=== PATIENT | female | born 1930 | race Caucasian/White ===

== ENCOUNTER 2017-06-26 09:10 | Inpatient (IN) | payer OTHER ==
--- NOTE | 2017-06-26 09:12 | EDPHY ---
H & P HPI/ROS: CHIEF COMPLAINT: Weakness HISTORY OF PRESENT ILLNESS: This patient is an 87 year old female arriving with her family complaining of vertigo and weakness onset this morning upon waking. When she went to get out of bed this morning, she felt her "legs wouldn't work", and had associated spinning dizziness and vision changes, including intermittent diplopia. She found she could not get up due to severe weakness. She is usually able to ambulate with a cane or walker, and lives independently. She called her daughter , who in turn summoned EMS. She denies headache. She is photophobic. She denies any urinary complaints, diarrhea, vomiting, or other associated symptoms. She has had episodes of weakness in the past related to inadequate oral intake, but this episode seems worse. REVIEW OF SYSTEMS: A ten point review of systems was performed and is negative with the exception of the items mentioned in the HPI. Past medical history: 1. Colitis 2. Hypertension 3. Hyperlipidemia 4. Hypothyroid 5. Pulmonary Embolism / DVT Past surgical history: 1. Appendectomy 2. Tonsillectomy 3. Partial hysterectomy 4. Splenectomy 5. Hip replacement 6. Thyroidectomy Reviewed past medical records including ED visit 07/06/16 for syncope and weakness. Family history: Noncontributory Social history: Lives independently in a townhouse in [place]. Son and daughter-in -law at bedside. . General Appearance: Alert. Vital signs reviewed. Blood pressure 180/102 at triage. Eyes: Pupils equal and round, no conjunctival injection, no discharge. Anicteric. ENT, Mouth: Mucous membranes are moist, no oropharyngeal erythema or edema. Neck: No lymphadenopathy, supple. Respiratory: Lungs are clear to auscultation; no wheezes, rales, or rhonchi. Cardiovascular: Regular rate and rhythm; no murmur, rub, or gallop. Gastrointestinal: Abdomen is soft and nontender, no masses or organomegaly, bowel sounds normal. Skin: Warm and dry, no rashes on exposed skin, normal color. Back: Nontender to palpation over the thoracolumbar spine. No CVAT. Extremities: No lower extremity edema, no calf tenderness or swelling. Neurological: Alert and oriented. Moving all four extremities easily and equally. Cranial nerves II through XII are examined and are intact with the exception of possible double vision, no field cut appreciated on bedside testing (visual acuity not tested). Sensation is intact to light touch over all 4 extremities. Strength is 4/5 with individual motor testing in the upper and lower extremities. Left leg dysmetria on [id number]. When she attempts to stand at the bedside and walk she requires an assist on each side. Psychiatric: Normal affect. - Medical/Surgical History Hx Asthma: No Hx Chronic Respiratory Disease: No Hx Diabetes: No Hx Cardiac Disease: Yes Hx Renal Disease: No Hx Cirrhosis: No Hx Alcoholism: No Hx HIV/AIDS: No Hx Splenectomy or Spleen Trauma: Yes - Social History Smoking Status: Never smoked Constitutional: Initial Vital Signs Temperature (C) 36.7 C 06/26/17 09:15 Heart Rate 67 06/26/17 09:15 Respiratory Rate 16 06/26/17 09:15 Blood Pressure 180/102 H 06/26/17 09:15 O2 Sat (%) 88 L 06/26/17 09:15 O2 Delivery Mode Nasal Cannula O2 (L/minute) 2 Allergies/Adverse Reactions: No Known Allergies Allergy (Verified 06/26/17 09:45) Home Medications: Medication Instructions Recorded Levothyroxine [Synthroid 75 mcg 75 mcg PO DAILY06 07/06/16 (*)] Losartan Potassium [Cozaar 50 mg 50 mg PO DAILY 07/06/16 (*)] Mesalamine [Apriso 0.375 gm] 1.5 gm PO DAILY@12 07/06/16 Aspirin [Aspirin 81mg (*)] 81 mg PO HS 06/26/17 Medical Decision Making - Diagnostics EKG Interpretation: The 12 lead EKG was interpreted by myself. See hard copy and/or "tracemaster" electronic copy for interpretation. ED Course/Re-evaluation: Plan for CT head, labs including CBC, BMP, Troponin, PTPTT. 10:[address] Dias, radiologist. CT shows evidence of old cortical and cerebellar infarcts. No definite acute processes. She is unable to stand and walk. She requires and assist on each side to stand at the bedside. Both she and her family state that this is new. She usually uses a cane or a walker and does fine. Today she is unable to walk with an assistive device. It is my impression that she has some left leg weakness. 12:34 Spoke with hospitalist service. Dr. Saavedra accepts admission for leg weakness, double vision, possible CVA. MRI pending. She was noted to be hypertensive on arrival. Her blood pressure has decreased during her stay here. 2:00 p.m.: MRI results reported to me by Dr. Dias. She has an acute right thalamic lacunar infarct. She presented with these symptoms and they were present on awakening. She is not a tPA candidate as the onset of symptoms is unknown. Differential Diagnosis: I considered a differential diagnosis that includes but is not limited to embolic or hemorrhagic stroke, intracranial mass, normal pressure hydrocephalus , vertigo, and infection. - Data Points Laboratory Results: Laboratory Results 06/26/17 09:01 06/26/17 09:41 Medications Given: Clopidogrel Bisulfate (Plavix) 75 mg PO DAILY ZEKE Stop: 12/23/17 15:29 Last Admin: 06/28/17 09:27 Dose: 75 mg Ezetimibe (Zetia) 10 mg PO DAILY ZEKE Stop: 12/24/17 10:59 Last Admin: 06/28/17 09:27 Dose: 10 mg Levothyroxine Sodium (Synthroid) 75 mcg PO DAILY06 ZEKE Stop: 12/23/17 15:54 Last Admin: 06/28/17 05:20 Dose: 75 mcg Losartan Potassium (Cozaar) 25 mg PO DAILY ZEKE Stop: 12/25/17 08:59 Last Admin: 06/28/17 09:27 Dose: 25 mg Miscellaneous Medication (Mesalamine [Apriso 0.375 Gm]) 1.5 gm PO DAILY@12 ZEKE Stop: 12/23/17 16:14 Last Admin: 06/27/17 12:16 Dose: 4 cap Discontinued Medications Sodium Chloride (Ns) 500 mls @ 0 mls/hr IV ONCE ONE PRN Reason: Wide Open Stop: 06/26/17 21:00 Last Admin: 06/26/17 21:06 Dose: 500 mls Losartan Potassium (Cozaar) 50 mg PO DAILY ZEKE Stop: 12/24/17 08:59 Last Admin: 06/27/17 08:50 Dose: 50 mg Departure - Departure Disposition: [facility] Inpatient Acute Clinical Impression: Leg weakness, bilateral, Double vision CVA (cerebral vascular accident) Qualifiers: CVA mechanism: embolism Laterality of affected vessel: right Condition: Fair Report Scribed for: Snow Carroll Report Scribed by: Stacey Abrams Date of Report: 06/26/17 Time of Report: 09:37 Physician Review and Approval Statement: 06/26/17 15:03 Portions of this note were transcribed by the medical assembly. I, Dr. Snow Carroll, personally performed the history, physical exam, and medical decision- making; and confirmed the accuracy of the information in the transcribed note.
--- NOTE | 2017-06-26 09:27 | CPEKG ---
Heart Rate: 65 RR Interval: 923 P-R Interval: 176 QRSD Interval: 90 QT Interval: 440 QTC Interval: 458 P Orient: 72 QRS Orient: 93 T Wave Orient: -1 EKG Severity - ABNORMAL ECG - EKG Impression: SINUS RHYTHM EKG Impression: RIGHT AXIS DEVIATION EKG Impression: LOW VOLTAGE IN FRONTAL LEADS EKG Impression: BORDERLINE T ABNORMALITIES, INFERIOR LEADS Electronically Signed By: Snow Carroll 26-Jun-2017 16:54:28
[2017-06-26 09:50] LABS: % IMMATURE GRANULYOCYTES 0.3 % (0.0-1.1); ABSOLUTE IMMATURE GRANULOCYTES 0.02 10^3/uL (0.00-0.10); ADD DIFF? NO; ADD MORPH? NO; ADD SCAN? NO; ATYPICAL LYMPHOCYTE FLAG 0 (0-99); FRAGMENT RBC FLAG 0 (0-99); HEMATOCRIT 40.9 % (38.0-47.0); HEMOGLOBIN 13.7 g/dL (12.6-16.3); LEFT SHIFT FLG 0 (0-99); LIPEMIA HEMOLYSIS FLAG 80 (0-99); MEAN CELL HEMOGLOBIN 33.6 pg (27.9-34.1); MEAN CELL HEMOGLOBIN CONCENTR. 33.5 g/dL (32.4-36.7); MEAN CELL VOLUME 100.2 fL (81.5-99.8); MEAN PLATELET VOLUME 10.6 fL (8.7-11.7); PLATELET CLUMPS FLAG 10 (0-99); PLATELET COUNT 304 10^3/uL (150-400); RED BLOOD CELL COUNT 4.08 10^6/uL (4.18-5.33); RED CELL DISTRIBUTION WIDTH 14.6 % (11.5-15.2)
[2017-06-26 09:52] LABS: MUCUS TRACE /lpf (NONE-1+)
[2017-06-26 09:55] LABS: ANION GAP 12 mEq/L (8-16); CALCIUM 9.7 mg/dL (8.5-10.4); CARBON DIOXIDE 22 mEq/l (22-31); CHLORIDE 103 mEq/L (97-110); CREATININE 0.6 mg/dL (0.6-1.0); GLOMERULAR FILTRATION RATE > 60; GLUCOSE 95 mg/dL (70-100); POTASSIUM 4.4 mEq/L (3.5-5.2); SODIUM 137 mEq/L (134-144)
[2017-06-26 10:07] LABS: TROPONIN I < 0.012 ng/mL (0-0.034)
[2017-06-26 11:15] LABS: INR 1.1 (0.83-1.16); PROTIME(PATIENT) 14.1 SEC (12.0-15.0)
[2017-06-26 11:16] LABS: APTT 21.7 SEC (23.0-38.0)
[2017-06-26] MEDS ORDERED: GADOBUTROL 10 ML VIAL IVP ONE (13:16)
[2017-06-26] MEDS ORDERED: ACETAMINOPHEN 325 MG TAB PO PRN (15:22)
[2017-06-26] MEDS ORDERED: ONDANSETRON 4 MG/2 ML VIAL IVP PRN (15:22)
[2017-06-26] MEDS ORDERED: ONDANSETRON DISINTEGRATING 4 MG TAB PO PRN (15:22)
[2017-06-26] MEDS ORDERED: IOPAMIDOL (ISOVUE 370) 100 ML BTL IV ONE (16:23)
--- NOTE | 2017-06-26 16:49 | PDGENHP ---
History and Physical - Chief Complaint Acute weakness - History of Present Illness Primary care provider: [facility] Primary pre assembly wirer: Dr. Robertson History of present illness: 87-year-old female presenting with acute weakness characterized as inability to stand up from bed, located in the bilateral lower extremities, associated with diplopia and photophobia. Onset of symptoms was about 6:30 a.m. on the day of this presentation, and duration has been persistent thereafter. The patient reports that she was unable to get out of bed and she contacted her daughter for assistance. The patient reports that she had otherwise been feeling well on the evening prior to this presentation, and she was able to ambulate safely and put herself to bed. She reports that she had otherwise been completing all of her activities of daily living in taking her home medications as prescribed. Although the weakness subjectively persisted in the emergency department, the patient's physical exam objectively improved. She did report that the diplopia causing a sensation of dizziness, and seemed to be exacerbated by attempting to focus on distant objects. She reports that she has had vertigo in the past, and this did not seem similar to that condition. History Information - Allergies/Home Medication List Allergies/Adverse Reactions: No Known Allergies Allergy (Verified 06/26/17 09:45) Home Medications: Levothyroxine [Synthroid 75 mcg (*)] 75 mcg PO DAILY06 07/06/16 [Last Taken 07/04] Losartan Potassium [Cozaar 50 mg (*)] 50 mg PO DAILY 07/06/16 [Last Taken ] Mesalamine [Apriso 0.375 gm] 1.5 gm PO DAILY@12 07/06/16 [Last Taken 06/25/17] Aspirin [Aspirin 81mg (*)] 81 mg PO HS 06/26/17 [Last Taken 06/25/17] I have personally reviewed and updated: family history, medical history, social history, surgical history - Past Medical History atrial fibrillation (Paroxysmal), hypertension Additional medical history: Ulcerative colitis. Hemorrhoids. Aortic insufficiency. Pulmonary hypertension. Hypothyroidism. History of pulmonary embolism. Previous CVA - Surgical History Additional surgical history: Thyroid cancer with thyroidectomy. Right total hip replacement. Splenectomy. Hysterectomy. Appendectomy. Tonsillectomy. Adenoidectomy - Family History Additional family history: Sibling and parents CVAs - Social History Smoking Status: Never smoked Alcohol Use: None Drug Use: None Additional social history: Lives independently in 2 story condo in [place], daughter lives locally Review of Systems ROS: 10pt was reviewed & negative except for what was stated in HPI & below Constitutional: Reports: weakness EENMT: Reports: blurred vision (Diplopia) Physical Exam Temp Pulse Resp BP Pulse Ox 36.4 C 62 16 152/83 H 94 06/26/17 15:16 06/26/17 15:16 06/26/17 15:16 06/26/17 15:16 06/26/17 15:16 O2 (L/minute) 2 Constitutional: no apparent distress, not in pain, chronically ill appearing, No uncomfortable Eyes: PERRL, anicteric sclera, EOMI Ears, Nose, Mouth, Throat: moist mucous membranes, hearing normal, ears appear normal, no oral mucosal ulcers Cardiovascular: systolic murmur (Late 2/6 systolic murmur at the left sternal border), No irregularly irregular, No tachycardia, No edema Respiratory: no respiratory distress, no rales or rhonchi, clear to auscultation Gastrointestinal: normoactive bowel sounds, soft, non-tender abdomen, no palpable masses Musculoskeletal: full muscle strength, other (Mild crepitus right knee on flexion, osteoarthritic changes bilateral feet) Neurologic: AAOx3, sensation intact bilaterally, No weakness (Motor strength 5/ 5 bilateral upper and lower extremities) Psychiatric: interacting appropriately, not anxious, not encephalopathic, thought process linear Lab Data & Imaging Review 06/26/17 09:01 06/26/17 09:41 WBC 6.60 10^3/uL (3.80-9.50) 06/26/17 09:01 RBC 4.08 10^6/uL (4.18-5.33) L 06/26/17 09:01 Hgb 13.7 g/dL (12.6-16.3) 06/26/17 09:01 Hct 40.9 % (38.0-47.0) 06/26/17 09:01 MCV 100.2 fL (81.5-99.8) H 06/26/17 09:01 MCH 33.6 pg (27.9-34.1) 06/26/17 09:01 MCHC 33.5 g/dL (32.4-36.7) 06/26/17 09:01 RDW 14.6 % (11.5-15.2) 06/26/17 09:01 Plt Count 304 10^3/uL (150-400) 06/26/17 09:01 MPV 10.6 fL (8.7-11.7) 06/26/17 09:01 Neut % (Auto) 49.8 % (39.3-74.2) 06/26/17 09:01 Lymph % (Auto) 35.5 % (15.0-45.0) 06/26/17 09:01 [place] % (Auto) 11.8 % (4.5-13.0) 06/26/17 09:01 Eos % (Auto) 2.0 % (0.6-7.6) 06/26/17 09:01 Baso % (Auto) 0.6 % (0.3-1.7) 06/26/17 09:01 Nucleat RBC Rel Count 0.0 % (0.0-0.2) 06/26/17 09:01 Absolute Neuts (auto) 3.29 10^3/uL (1.70-6.50) 06/26/17 09:01 Absolute Lymphs (auto) 2.34 10^3/uL (1.00-3.00) 06/26/17 09:01 Absolute Monos (auto) 0.78 10^3/uL (0.30-0.80) 06/26/17 09:01 Absolute Eos (auto) 0.13 10^3/uL (0.03-0.40) 06/26/17 09:01 Absolute Basos (auto) 0.04 10^3/uL (0.02-0.10) 06/26/17 09:01 Absolute Nucleated RBC 0.00 10^3/uL (0-0.01) 06/26/17 09:01 Immature Gran % 0.3 % (0.0-1.1) 06/26/17 09:01 Immature Gran # 0.02 10^3/uL (0.00-0.10) 06/26/17 09:01 PT 14.1 SEC (12.0-15.0) 06/26/17 10:48 INR 1.10 (0.83-1.16) 06/26/17 10:48 APTT 21.7 SEC (23.0-38.0) L 06/26/17 10:48 Sodium 137 mEq/L (134-144) 06/26/17 09:41 Potassium 4.4 mEq/L (3.5-5.2) 06/26/17 09:41 Chloride 103 mEq/L (97-110) 06/26/17 09:41 Carbon Dioxide 22 mEq/l (22-31) 06/26/17 09:41 Anion Gap 12 mEq/L (8-16) 06/26/17 09:41 BUN 22 mg/dL (7-23) 06/26/17 09:41 Creatinine 0.6 mg/dL (0.6-1.0) 06/26/17 09:41 Estimated GFR > 60 06/26/17 09:41 Glucose 95 mg/dL (70-100) 06/26/17 09:41 Calcium 9.7 mg/dL (8.5-10.4) 06/26/17 09:41 Troponin I < 0.012 ng/mL (0-0.034) 06/26/17 09:41 Urine RBC 3-5 /hpf (0-3) H 06/26/17 09:01 Urine WBC 1-3 /hpf (0-3) 06/26/17 09:01 Ur Epithelial Cells TRACE /lpf (NONE-1+) 06/26/17 09:01 Urine Mucus TRACE /lpf (NONE-1+) 06/26/17 09:01 Visualized and Interpreted EKG results: Yes EKG Interpretation: Positive for: other (Normal sinus mechanism with PAC and PVC , T-wave inversion inferiorly) Assessment & Plan Assessment: 87-year-old female presents with acute lacunar infarction in the setting of paroxysmal atrial fibrillation, previous CVA Plan: 1. Acute CVA. New problem this provider, further workup indicated. Evidenced by right-sided lacunar infarct on MRI with symptoms including bilateral lower extremity weakness and diplopia -reviewed outside records including 07/08/[address] Isadora Saavedra, reporting the patient experienced weakness most likely secondary to dehydration in the setting of previous CVA, with head CT demonstrating occipital and cerebellar infarcts but no acute CVA on MRI imaging -discussed with Dr. Samm Hernandez, he recommends workup including CT angiogram, echocardiogram -get lipids and hemoglobin A1c -monitor on telemetry to gauge whether she is experiencing recurrent paroxysmal atrial fibrillation -a suspected that the infarct is secondary to small vessel disease and not a cardioembolic source, that being said, the patient is a high risk for recurrent CVA in the setting of her paroxysmal atrial fibrillation and previous infarcts -the present time, we will upgrade her anti-platelet to aspirin from Plavix, and then discuss systemic anticoagulation with the patient tomorrow -should be noted the patient has been on systemic anticoagulation in the past, but she is currently not taking that, has a normal INR, will require further conversation with patient and daughter tomorrow -will require aggressive physical and occupational therapy, suspect the patient will need a halfway facility rehab stay prior to returning home 2. Hypertension. Permissive hypertension following CVA, hold patient's ARB today, reinitiate tomorrow 3. Ulcerative colitis. Chronic, continue patient's home medication Diet. Cardiac after swallow eval Prophylaxis. High risk patient, SCDs, holding pharm given recent CVA Code. Do not resuscitate per patient, daughter is her MDPOA Disposition. Anticipated discharge uncertain this time, anticipated length stay is greater than 48 hours warranting inpatient admission status for reasonable medical necessity including acute CVA requiring aggressive workup and therapy evaluations.
[2017-06-26] MEDS: MESALAMINE PO SCH (17:56)
[2017-06-26] MEDS: CLOPIDOGREL BISULFATE 75 MG TAB PO SCH (17:56)
[2017-06-26] MEDS: LEVOTHYROXINE 75 MCG TAB PO SCH (17:59)
--- NOTE | 2017-06-26 19:36 | GCON ---
[f rep st] CONSULTATION NEUROLOGY CONSULTATION DATE OF CONSULTATION: 06/26/2017 REFERRING PHYSICIAN: Husam Mcgee MD CHIEF COMPLAINT: Stroke. HISTORY OF PRESENT ILLNESS: The patient is a very pleasant 87-year-old lady who has a long standing history of hypertension. Indeed almost exactly 1 year ago the patient was admitted for a hypertensive episode. The record also indicates she had a history of atrial fibrillation and was on Coumadin. This was discontinued around 3 months ago. Apparently it was also being used for a previous history of venous thrombosis. The patient felt generally weak today in all 4 limbs without lateralization along with having double vision and came to the ER. MRI brain showed stigmata of significant hypertensive encephalopathy, white matter changes, and an acute right thalamic stroke on diffusion-weighted images. This was in a lacunar distribution. Her symptoms have improved over the hospitalization. Her initial blood pressure in the ED was 180/102. REVIEW OF SYSTEMS: A 10-point review of systems was done and only pertinent to the HPI. Past medical history, family history, social history, home medications, and allergies please refer to Dr. Mcgee's history. 70 total minutes floor time; reviewing MRI brain imaging, angiography medical history records and in direct counseling with the patient and her daughter. PHYSICAL EXAMINATION: VITAL SIGNS: Blood pressure 147/73, afebrile, heart rate 62, O2 sats 94%. GENERAL: No acute distress. Very pleasant lady. HIGHER MENTAL FUNCTION: She is awake and alert. Has no aphasia. CRANIAL NERVE : She may have some very mild left facial weakness in an upper motor neuron pattern. Otherwise cranial nerves 2 through 5 and 12 are normal. MOTOR: She has no pronator drift. No focal weakness. Tone and is normal. SENSORY: Normal to light touch throughout. IMPRESSION/PLAN: 1. Hypertensive leukoencephalopathy. 2. Acute lacunar right thalamic infarct. 3. Hypertensive emergency. 4. Query history of atrial fibrillation Overall, my impression is the patient's presenting symptoms were more likely due to a hypertensive emergency causing multiple localizations of neurologic symptoms and, in this setting, the right thalamic lacunar infarct occurred. The main symptom or sign referable at this point to the this acute stroke is some minimal left-sided facial weakness which is apparently improving according to nursing staff. Therefore, going forward the mainstay of treatment will be anti-platelet therapy in the form Plavix 75 mg daily and tight blood pressure control going forward. We discussed potential risks, benefits, and alternatives of Plavix. The other issue is whether she has atrial fibrillation or not. She had been on warfarin in the past. Certainly if there is evidence of atrial fibrillation during this hospitalization or on an outpatient 30-day event monitor, then anticoagulation could be restarted. There were no significant abnormalities on her angiography of the head or neck. She also may need placement to a [facility] facility depending what my colleagues and OT and PT assess. Thank you for this consultation, we will follow up on the above. /[id number]/MODL MTDD
[2017-06-26] MEDS ORDERED: NS 500 ML IV ONE (20:59)
[2017-06-27 04:53] LABS: % IMMATURE GRANULYOCYTES 0.2 % (0.0-1.1); ABSOLUTE IMMATURE GRANULOCYTES 0.01 10^3/uL (0.00-0.10); ADD DIFF? NO; ADD MORPH? NO; ADD SCAN? NO; ATYPICAL LYMPHOCYTE FLAG 10 (0-99); FRAGMENT RBC FLAG 0 (0-99); HEMATOCRIT 33.7 % (38.0-47.0); HEMOGLOBIN 11.2 g/dL (12.6-16.3); LEFT SHIFT FLG 0 (0-99); LIPEMIA HEMOLYSIS FLAG 80 (0-99); MEAN CELL HEMOGLOBIN 33.8 pg (27.9-34.1); MEAN CELL HEMOGLOBIN CONCENTR. 33.2 g/dL (32.4-36.7); MEAN CELL VOLUME 101.8 fL (81.5-99.8); MEAN PLATELET VOLUME 9.8 fL (8.7-11.7); PLATELET CLUMPS FLAG 0 (0-99); PLATELET COUNT 257 10^3/uL (150-400); RED BLOOD CELL COUNT 3.31 10^6/uL (4.18-5.33); RED CELL DISTRIBUTION WIDTH 14.6 % (11.5-15.2)
[2017-06-27 05:21] LABS: ALANINE AMINOTRANSFERASE 18 IU/L (9-52); ALKALINE PHOSPHATASE 78 IU/L (38-126); ANION GAP 6 mEq/L (8-16); ASPARTATE AMINOTRANSFERASE 21 IU/L (14-46); BILIRUBIN,TOTAL 0.8 mg/dL (0.1-1.4); CARBON DIOXIDE 26 mEq/l (22-31); CHLORIDE 104 mEq/L (97-110); CHOLESTEROL 170 mg/dL (140-220); CHOLESTEROL/HDL RATIO 2.62 RATIO (1.00-4.44); CREATININE 0.6 mg/dL (0.6-1.0); GLOMERULAR FILTRATION RATE > 60; GLUCOSE 83 mg/dL (70-100); HIGH DENSITY LIPOPROTEIN 65 mg/dL (40-85); LDL/HDL RATIO 1.42 RATIO (1.00-3.22); LOW DENSITY LIPOPROTEIN 92 mg/dL (80-100); NON-HIGH DENSITY LIPOPROTEIN 105 mg/dL (90-129); POTASSIUM 4.3 mEq/L (3.5-5.2); SODIUM 136 mEq/L (134-144); TOTAL PROTEIN 5.7 g/dL (6.3-8.2); TRIGLYCERIDE 66 mg/dL (35-135); VERY LOW DENSITY LIPOPROTEINS 13 mg/dL (8-25)
[2017-06-27] MEDS ORDERED: LEVOTHYROXINE 75 MCG TAB PO SCH (06:00)
[2017-06-27] MEDS: LEVOTHYROXINE 75 MCG TAB PO SCH (06:07)
--- NOTE | 2017-06-27 08:00 | ECHO ---
[id number] + + [id number] : : [place] [id number] : : [phone] + + Adult Echocardiographic Report + + :Name: ERNIE HERNÁNDEZ RStudy Date: 06/26/2017 03:47 PM BP: 152/8 3 mmHg : : Hospital Admission Number: [id number] L ocation: 354: :: 1930 Gender: Female Height: 5 7 in : :Age: 87 yrs Race: WH Weight: 9 2 lb : :Reason For Study: source of emboli : : BSA: 1.3 meters2 : :History: stroke : + + MMode/2D Measurements \T\ Calculations IVSd: 1.3 cm RVDd: 2.9 cm FS: 25.5 % Ao root diam: LVPWd: 0.89 cm LVIDd: 3.6 cm EDV(Teich): 54.9 ml3.4 cm LVIDs: 2.7 cm ESV(Teich): 26.8 ml EF(Teich): 51.1 % LVOT diam: 2.0 cm LVLd ap4: 7.6 cm SV(MOD-sp4): LVOT area: EDV(MOD-sp4): 65.0 ml 3.0 cm2 92.0 ml LVLs ap4: 6.1 cm ESV(MOD-sp4): 27.0 ml EF(MOD-sp4): 70.7 % Normal Measurement Values: + + :LVIDd (3.5-5.7cm) IVSd (0.6-1.1cm) LVPWd (0.6-1.1cm) Aortic Root (2.0-3.7cm)Left Atrium (1.5-4.0cm): :LV Vol(d) (76-115ml) LV Vol(s) (29-48ml) Ejec Fraction (50-65%)PV Rudy (0.6- 1.2m/s) TV Rudy (0.4-1.0m/s) : :MV E Rudy (0.8-1.0m/s)MV A Rudy (0.3-1.0m/s)LVOT Rudy (0.7-1.2m/s) Asc Ao Rudy ( 0.9-1.8m/s) : + + Doppler Measurements \T\ Calculations MV E max rudy: Ao V2 max: AI max rudy: LV V1 max: 51.3 cm/sec 116.2 cm/sec 470.6 cm/sec 70.1 cm/sec MV A max rudy: Ao max PG: AI max P.6 mmHg LV V1 max P.8 cm/sec 5.4 mmHg AI dec slope: 2.0 mmHg MV E/A: 0.89 JAVI(V,D): 1.8 cm2 193.0 cm/sec2 MV dec time: AI P1/2t: 714.0 msec 0.32 sec PA V2 max: TR max rudy: 79.5 cm/sec 238.9 cm/sec PA max PG: TR max P.5 mmHg 22.8 mmHg RAP systole: 5.0 mmHg RVSP(TR): 27.8 mmHg Left Ventricle The left ventricle is normal in size and function. Proximal septal thickening is noted. Echo findings are not consistent with left ventricular outflow obstruction. Ejection Fraction = 65-70%. No regional wall motion abnormalities noted. Right Ventricle The right ventricle is normal in size and function. Atria The left atrium is severely dilated. The right atrium is borderline dilated. Mitral Valve The mitral valve leaflets appear thickened, but open well. There is no mitral valve stenosis. There is mild to moderate mitral regurgitation. Tricuspid Valve There is no tricuspid stenosis. There is moderate tricuspid regurgitation. Right ventricular systolic pressure is 28mmHg. Aortic Valve The aortic valve is trileaflet. Mild Aortic Valve Calcification. There is no aortic stenosis. Mild aortic regurgitation. Pulmonic Valve The pulmonic valve is normal in structure and function. Mild pulmonic valvular regurgitation. Great Vessels The aortic root is normal size. Pericardium/Pleural There is no pericardial effusion. Conclusion A two-dimensional transthoracic echocardiogram with M-mode and Doppler was performed. There is no obvious source of embolus identified. If one is highly clinically suspected, then transesophageal echocardiography should be considered. The left ventricle is normal in size and function. Ejection Fraction = 65-70%. The left atrium is severely dilated. The right atrium is borderline dilated. There is mild to moderate mitral regurgitation. There is moderate tricuspid regurgitation. Right ventricular systolic pressure is 28mmHg. Mild aortic regurgitation. Mild pulmonic valvular regurgitation. Final Reading Physician: Patricia Oquendo signed on 06/27/2017 07:58 AM Ordering Physician: Samm Hernandez Performed By: Regla Sandoval
[2017-06-27] MEDS: CLOPIDOGREL BISULFATE 75 MG TAB PO SCH (08:50)
[2017-06-27] MEDS ORDERED: LOSARTAN POTASSIUM 50 MG TAB PO SCH ×2 (09:00→10:52)
[2017-06-27 11:29] LABS: HEMOGLOBIN A1C 5.8 % (4.0-6.0)
--- NOTE | 2017-06-27 11:32 | HOSPPROG ---
Hospitalist Progress Note Assessment/Plan: Assessment: 87-year-old female presents with acute lacunar infarction in the setting of paroxysmal atrial fibrillation, previous CVA Plan: 1. Acute CVA. Evidenced by right-sided lacunar infarct on MRI with symptoms including bilateral lower extremity weakness and diplopia -likely 2/2 small vessel disease, normal CTA -started on plavix -LDL 92, goal 70, recommended we restart zetia (patient w/ rhabdo on statin) -symptom of diplopia resolved, L mouth droop persists -d/w daughter and patient, they report no knowledge of paroxysmal Afib, will review outside records to confirm/deny hx -presently substantially less steady on feet than baseline, engage w/ PT/OT, plan for SNF rehab 2. Hypertension. Permissive hypertension following CVA, became hypotensive o/ n and goal SBP 120-160 to avoid neuro hypoperfusion -reduced losartan to 25mg daily 3. Ulcerative colitis. Chronic, continue patient's home medication Diet. Cardiac after swallow eval Prophylaxis. High risk patient, SCDs, holding pharm given recent CVA Code. Do not resuscitate per patient, daughter is her MDPOA Disposition. Anticipated discharge uncertain this time, CM pursuing SNF auth Subjective: counseled patient/daughter extensively regarding the need for rehab therapy, LDL mgmt, and risk of falls Objective: Vital Signs Temp Pulse Resp BP Pulse Ox 37.1 C 59 L 16 127/67 H 95 06/27/17 07:36 06/27/17 07:36 06/27/17 07:36 06/27/17 08:50 06/27/17 07:36 Laboratory Results 06/27/17 04:28 06/27/17 04:28 06/26/17 06/27/17 06/28/17 05:59 05:59 05:59 Intake Total 250 Output Total 850 Balance -600 PT 14.1 SEC (12.0-15.0) 06/26/17 10:48 INR 1.10 (0.83-1.16) 06/26/17 10:48 - Time Spent With Patient Time Spent with Patient: greater than 35 minutes Time Spent with Patient: Greater than 35 minutes spent on this patients care, greater than 50% of time spent counseling, educating, and coordinating care regarding the above mentioned plan. - Physical Exam Constitutional: no apparent distress, not in pain, No uncomfortable Cardiovascular: systolic murmur (i/vi at sternum), No irregularly irregular, No tachycardia, No edema Respiratory: no respiratory distress, no rales or rhonchi, clear to auscultation Gastrointestinal: normoactive bowel sounds, soft, non-tender abdomen, no palpable masses Neurologic: AAOx3, sensation intact bilaterally, CN II-XII Intact, facial droop (L mouth), No weakness (motor 5/5 bilat LE/UE) Psychiatric: not encephalopathic, thought process linear, flat affect, No agitated ICD10 Worksheet Patient Problems: Problems Problem Status Onset Weakness Acute Weakness of right leg Acute Syncope Acute Leg weakness, bilateral Acute Double vision Acute CVA (cerebral vascular accident) Acute
[2017-06-27] MEDS ORDERED: MESALAMINE PO SCH (12:00)
[2017-06-27] MEDS: MESALAMINE PO SCH (12:16)
[2017-06-27] MEDS: EZETIMIBE 10 MG TAB PO SCH (12:17)
--- NOTE | 2017-06-27 14:31 | NEUROPROG ---
Assessment: 1. Hypertensive leukoencephalopathy 2. Hypertensive urgency 3. Acute right thalamic lacunar infarction in the setting of diagnoses 1. And 2. 4. Query history of paroxysmal atrial fibrillation The patient has had no new events. She is on Plavix 75 mg daily for anti thrombotic purposes. Her stroke workup does not reveal any other causes for stroke outside of probable small-vessel, lacunar infarction However, I recommend a outpatient 30 day event monitor and follow up with Cardiology upon discharge to screen for paroxysmal atrial fibrillation. I had a long discussion with her daughter and family regarding the pros and cons of anticoagulation versus antiplatelets if she does have atrial fibrillation. Certainly, anticoagulation will increase her risk for intercerebral hemorrhage based on her hypertension history and white matter changes. They also understand the risk of ischemic stroke in the setting as well. They will think about this and be ready to discuss and follow up with Cardiology. Going forward, I recommend continuation of Plavix 75 mg daily, statin therapy and disposition per Care Team recommendations. No further recommendations now. We will continue to follow this very pleasant lady p.r.n. please do not hesitate to call with any questions or changes in neurologic status. Subjective: No new events Objective: Vital Signs Temp Pulse Resp BP Pulse Ox 36.7 C 71 15 119/65 91 L 06/27/17 11:54 06/27/17 11:54 06/27/17 11:54 06/27/17 11:54 06/27/17 11:54 Laboratory Results 06/27/17 04:28 06/27/17 04:28 06/26/17 06/27/17 06/28/17 05:59 05:59 05:59 Intake Total 250 Output Total 850 Balance -600 PT 14.1 SEC (12.0-15.0) 06/26/17 10:48 INR 1.10 (0.83-1.16) 06/26/17 10:48 Slight left-sided facial droop Allergies/Adverse Reactions: No Known Allergies Allergy (Verified 06/26/17 09:45)
[2017-06-28] MEDS: LEVOTHYROXINE 75 MCG TAB PO SCH (05:20)
[2017-06-28] MEDS: CLOPIDOGREL BISULFATE 75 MG TAB PO SCH (09:27)
[2017-06-28] MEDS: EZETIMIBE 10 MG TAB PO SCH (09:27)
[2017-06-28] MEDS: LOSARTAN POTASSIUM 25 MG TAB PO SCH (09:27)
[2017-06-28] MEDS ORDERED: BISACODYL 10 MG SUPP PR PRN (10:45)
[2017-06-28] MEDS ORDERED: MAGNESIUM CITRATE 300 ML BOTTLE PO ONE (10:45)
[2017-06-28] MEDS ORDERED: POLYETHYLENE GLYCOL 3350 17 GM PKT PO PRN (10:45)
[2017-06-28] MEDS ORDERED: LACTULOSE 20 GM/30 ML UDCUP PO PRN (10:45)
[2017-06-28] MEDS ORDERED: MAGNESIUM HYDROXIDE 30 ML UDCUP PO PRN (10:45)
[2017-06-28] MEDS: MESALAMINE PO SCH (12:48)
[2017-06-28] MEDS: SENNOSIDES/DOCUSATE SODIUM TAB PO SCH ×2 (12:51→19:57)
[2017-06-28 13:20] LABS: % IMMATURE GRANULYOCYTES 0.5 % (0.0-1.1); ABSOLUTE IMMATURE GRANULOCYTES 0.03 10^3/uL (0.00-0.10); ADD DIFF? NO; ADD MORPH? NO; ADD SCAN? NO; ATYPICAL LYMPHOCYTE FLAG 20 (0-99); FRAGMENT RBC FLAG 0 (0-99); HEMOGLOBIN 12.6 g/dL (12.6-16.3); LEFT SHIFT FLG 0 (0-99); LIPEMIA HEMOLYSIS FLAG 90 (0-99); MEAN CELL HEMOGLOBIN 34.1 pg (27.9-34.1); MEAN CELL HEMOGLOBIN CONCENTR. 34.1 g/dL (32.4-36.7); MEAN PLATELET VOLUME 9.6 fL (8.7-11.7); PLATELET CLUMPS FLAG 0 (0-99); PLATELET COUNT 264 10^3/uL (150-400); RED CELL DISTRIBUTION WIDTH 14.2 % (11.5-15.2)
[2017-06-28 13:45] LABS: ALANINE AMINOTRANSFERASE 24 IU/L (9-52); ALBUMIN 3.5 g/dL (3.5-5.0); ALKALINE PHOSPHATASE 93 IU/L (38-126); ANION GAP 7 mEq/L (8-16); ASPARTATE AMINOTRANSFERASE 21 IU/L (14-46); CALCIUM 9.2 mg/dL (8.5-10.4); CARBON DIOXIDE 26 mEq/l (22-31); CHLORIDE 100 mEq/L (97-110); CREATININE 0.6 mg/dL (0.6-1.0); GLOMERULAR FILTRATION RATE > 60; GLUCOSE 96 mg/dL (70-100); POTASSIUM 4.4 mEq/L (3.5-5.2); SODIUM 133 mEq/L (134-144); TOTAL PROTEIN 6.6 g/dL (6.3-8.2)
--- NOTE | 2017-06-28 17:18 | HOSPPROG ---
Hospitalist Progress Note Assessment/Plan: Assessment: 87-year-old female presents with acute lacunar infarction in the setting of previous CVA Plan: 1. Acute CVA. Evidenced by right-sided lacunar infarct on MRI with symptoms including bilateral lower extremity weakness and diplopia -likely 2/2 small vessel disease, normal CTA -started on plavix -LDL 92, goal 70, restarted zetia (patient w/ rhabdo on statin) -symptom of diplopia on distant objects persists, L mouth droop persists -d/w daughter and patient, they report no knowledge of paroxysmal Afib, but it was reported by EMS that patient had brief, self-limited Afib which cannot be confirmed/denied -d/w Dr. Hernandez, we agreed that she should have 30-day holter monitor, ordered, can be placed at SNF 2. Hypertension. Permissive hypertension following CVA, became hypotensive, goal SBP 120-160 to avoid neuro hypoperfusion -reduced losartan to 25mg daily 3. Ulcerative colitis. Chronic, continue patient's home medication Diet. Cardiac Prophylaxis. High risk patient, lovenox 40 Code. Do not resuscitate per patient, daughter is her MDPOA Disposition. Anticipated discharge 06/29 to SNF Subjective: Patient reports she is feeling generally fatigued today, counseled patient and daughter regarding persistence of symptoms to be expected given CVA , aggressive therapy recommended, custodial facility will help facilitate this, patient will be continued on q.4 hours neuro checks to ensure no hemorrhagic conversion or post stroke worsening Objective: Vital Signs Temp Pulse Resp BP Pulse Ox 36.7 C 76 21 H 126/79 H 92 06/28/17 16:00 06/28/17 16:00 06/28/17 16:00 06/28/17 16:00 06/28/17 12:00 Laboratory Results 06/28/17 13:15 06/28/17 13:15 06/27/17 06/28/17 06/29/17 05:59 05:59 05:59 Intake Total 250 200 Output Total 850 500 625 Balance -600 -300 -625 PT 14.1 SEC (12.0-15.0) 06/26/17 10:48 INR 1.10 (0.83-1.16) 06/26/17 10:48 - Time Spent With Patient Time Spent with Patient: greater than 35 minutes Time Spent with Patient: Greater than 35 minutes spent on this patients care, greater than 50% of time spent counseling, educating, and coordinating care regarding the above mentioned plan. - Pending Discharge Pending Discharge Within 24 Hours: Yes Pending Discharge Date: 06/29/17 Pending Discharge Time: 11:00 - Physical Exam Constitutional: no apparent distress, not in pain, chronically ill appearing, other ( aged appearing), No uncomfortable Cardiovascular: systolic murmur ( 1/6 at the sternum), No irregularly irregular , No tachycardia, No edema Respiratory: no respiratory distress, no rales or rhonchi, clear to auscultation Gastrointestinal: normoactive bowel sounds, soft, non-tender abdomen, no palpable masses Neurologic: AAOx3, sensation intact bilaterally, CN II-XII Intact ( with the exception of distant object diplopia), facial droop ( left mouth), No weakness ( motor strength 5/5 bilateral lower extremities) Psychiatric: not anxious, not encephalopathic, depressed, flat affect, No agitated ICD10 Worksheet Patient Problems: Problems Problem Status Onset Weakness Acute Weakness of right leg Acute Syncope Acute Leg weakness, bilateral Acute Double vision Acute CVA (cerebral vascular accident) Acute
[2017-06-28] MEDS: ENOXAPARIN 40 MG/0.4 ML SYR SC SCH (18:13)
[2017-06-28 19:12] VITALS: RESP 16
[2017-06-29 05:08] LABS: % IMMATURE GRANULYOCYTES 0.6 % (0.0-1.1); ABSOLUTE IMMATURE GRANULOCYTES 0.03 10^3/uL (0.00-0.10); ADD DIFF? NO; ADD MORPH? NO; ADD SCAN? NO; ATYPICAL LYMPHOCYTE FLAG 10 (0-99); FRAGMENT RBC FLAG 0 (0-99); HEMATOCRIT 35.6 % (38.0-47.0); HEMOGLOBIN 11.9 g/dL (12.6-16.3); LEFT SHIFT FLG 0 (0-99); LIPEMIA HEMOLYSIS FLAG 80 (0-99); MEAN CELL HEMOGLOBIN 33.5 pg (27.9-34.1); MEAN CELL HEMOGLOBIN CONCENTR. 33.4 g/dL (32.4-36.7); MEAN CELL VOLUME 100.3 fL (81.5-99.8); MEAN PLATELET VOLUME 10.1 fL (8.7-11.7); PLATELET CLUMPS FLAG 0 (0-99); PLATELET COUNT 266 10^3/uL (150-400); RED BLOOD CELL COUNT 3.55 10^6/uL (4.18-5.33); RED CELL DISTRIBUTION WIDTH 14.2 % (11.5-15.2)
[2017-06-29] MEDS: LEVOTHYROXINE 75 MCG TAB PO SCH (05:14)
[2017-06-29 05:27] LABS: ANION GAP 10 mEq/L (8-16); CARBON DIOXIDE 26 mEq/l (22-31); CHLORIDE 102 mEq/L (97-110); CREATININE 0.5 mg/dL (0.6-1.0); GLOMERULAR FILTRATION RATE > 60; GLUCOSE 90 mg/dL (70-100); POTASSIUM 4.3 mEq/L (3.5-5.2); SODIUM 138 mEq/L (134-144)
[2017-06-29] MEDS: EZETIMIBE 10 MG TAB PO SCH (09:52)
[2017-06-29] MEDS: CLOPIDOGREL BISULFATE 75 MG TAB PO SCH (09:52)
[2017-06-29] MEDS: LOSARTAN POTASSIUM 25 MG TAB PO SCH (09:52)
[2017-06-29] MEDS: SENNOSIDES/DOCUSATE SODIUM TAB PO SCH (09:53)
[2017-06-29] MEDS: ENOXAPARIN 40 MG/0.4 ML SYR SC SCH (09:53)
--- NOTE | 2017-06-29 10:23 | PDIAF ---
- Diagnosis Code Status: Do Not Resuscitate - Medication Management Discharge Medications: Medications to Continue on Transfer Levothyroxine [Synthroid 75 mcg (*)] 75 mcg PO DAILY06 07/06/16 [Last Taken 07/04] Losartan Potassium [Cozaar 50 mg (*)] 50 mg PO DAILY 07/06/16 [Last Taken ] Mesalamine [Apriso 0.375 gm] 1.5 gm PO DAILY@12 07/06/16 [Last Taken 06/25/17] Acetaminophen [Tylenol 325mg (*)] 650 mg PO Q4HRS PRN #0 tab 06/29/17 [Last Taken Unknown] Clopidogrel Bisulfate [Plavix (*)] 75 mg PO DAILY tab 06/29/17 [Last Taken Unknown] Ezetimibe [Zetia 10 MG (*)] 10 mg PO DAILY tab 06/29/17 [Last Taken Unknown] Polyethylene Glycol 3350 [Miralax 17 gm (*)] 17 gm PO DAILY PRN #0 pkt 06/29/17 [Last Taken Unknown] Sennosides/Docusate Sodium [Senokot-S] 1 - 2 tab PO BID tab 06/29/17 [Last Taken Unknown] Discharge Medications: Refer to the Discharge Home Medication list for PRN reason. - Orders Services needed: Registered Nurse, Certified [employer], Physical Therapy, Occupational Therapy Diet Recommendation: no restrictions on diet Weigh Patient: weekly Additional: Needs to follow up with [facility] for placement of 30 day heart monitor within the next week. - Follow Up Care Current Providers and Referrals: Patient,NotPresent [Primary Care Provider] - As per Instructions Husam Stephens MD [Medical Doctor] - (Call [facility] to set up Holter monitor) Samm Hernandez MD [Medical Doctor] - (call to be seen within the next 2 weeks)
[2017-06-29 12:12] VITALS: BP 126/74; PULSE 81; TEMP 98.1; O2SAT 95
[2017-06-29] MEDS: MESALAMINE PO SCH (12:45)
--- NOTE | 2017-06-29 13:28 | PDDCSUM ---
Discharge Summary Discharge Summary: Dates of service: 06/26-06/29/17 Discharge dx: # acute CVA # hypertensive leukoencephalopathy # chronic UC consultations: neurology Procedures performed: echo, head/neck CTA, brain MRI Hospital course by problem: 1. Acute CVA. Evidenced by right-sided lacunar infarct on MRI with symptoms including bilateral lower extremity weakness and diplopia -likely 2/2 small vessel disease, normal CTA -continue plavix, zetia for lipids given hx of rhabdo on statin therapy -presenting sxs improving -? a fib, will need 30 day Holter monitor as an OP--to be arranged via [facility] 2. Hypertension/hypertensive leukoencephalopathy. Permissive hypertension following CVA, BP now normalized on losartan which will be continued 3. Ulcerative colitis. Chronic, continue patient's home medication Code. Do not resuscitate per patient, daughter is her MDPOA DC to SNF Meds: see EHR > 35 minutes spent in dc of this patient, more than half in coordination of care
== END 2017-06-29 14:27 | DRG 65 ==
LOC: EDUNIT# → F3N 15:06
PROVIDERS: ADMIT Internal Medicine; ATTEND Internal Medicine
DX: I63.50 Cerebral infarction due to unspecified occlusion or stenosis of unspecified cerebral artery (principal); I67.4 Hypertensive encephalopathy; H53.2 Diplopia; I10 Essential (primary) hypertension; I48.91 Unspecified atrial fibrillation; E78.5 Hyperlipidemia, unspecified; E03.9 Hypothyroidism, unspecified; K51.90 Ulcerative colitis, unspecified, without complications; Z86.718 Personal history of other venous thrombosis and embolism; Z86.711 Personal history of pulmonary embolism; Z96.641 Presence of right artificial hip joint; Z85.850 Personal history of malignant neoplasm of thyroid
CPT/HCPCS: 92507-GN; 92523-GN; 97116-GP; 97161-GP; 97166-GO; 97535-GO; A9585; G8978-GP-CK; G8979-GP-CI; G8987-GO-CJ; G8988-GO-CI; G9168-GN-CL; G9169-GN-CK; J1650; Q9967